=== PATIENT | female | born 1945 | race Caucasian/White ===

== ENCOUNTER → 2016-06-29 | Outpatient (CLI) | payer OTHER ==
--- NOTE | ~2016-06-29 | US77 ---
[facility] A Service of [facility] & [facility] / [facility] RADIOLOGY TEXT RESULTS PATIENT: STAYC MARSH LOCATION: [facility] : 45 UNIT #: [id number] AGE: [address]: Carol Sylvester MD SEX: F ORDER DR: [id number] [facility] [address] [place], [place] [address] [id number] O MR#: [id number] Acc #: [id number] NAME: STACY MARSH : 1945 SEX: F STUDY DATE/TIME: 06/29/2016 13:28 UNIT: [facility] ROOM: STUDY DESCRIPTION: US Kidney Bilateral Complete Attending Physician: Carol Sylvester M.D. Referring Physician: Carol Sylvester M.D. Ordering Physician: Carol Sylvester M.D. Primary Care Physician: Carol Sylvester M.D. MEDICAL IMAGING REPORT This report is preliminary unless electronic signature is present EXAM Renal ultrasound 06/29/2016 INDICATIONS Renal insufficiency. BUN 21, creatinine 1.5, GFR 34. PROCEDURE Erazo-scale and Doppler imaging kidneys and bladder. COMPARISON STUDIES None FINDINGS Right kidney measures 9.4 cm. No hydronephrosis. Unremarkable bladder. Left kidney measures 11.5 cm. No hydronephrosis. The cortical thickness of both kidneys within normal limits. IMPRESSION No hydronephrosis. Cortical thickness of both kidneys within normal limits. Dictated by... Ga Tovar M.D. THIS IS AN ELECTRONICALLY VERIFIED REPORT Ga Tovar M.D. at 06/30/2016 7:18 AM Ambrocio TD: 06/29/2016 16:57 JOB #: [id number] MEDICAL IMAGING REPORT COPY
== END | disposition home or self-care (01) ==
LOC: CGUS 13:02
DX: N18.9 Chronic kidney disease, unspecified (principal); R79.9 Abnormal finding of blood chemistry, unspecified
CPT/HCPCS: 76770

== ENCOUNTER → 2016-11-05 | Outpatient (CLI) | payer OTHER ==
--- NOTE | ~2016-11-05 | MY29 ---
[facility] A Service of [facility] & [facility] RADIOLOGY TEXT RESULTS PATIENT: STACY MARSH LOCATION: [facility] : 45 UNIT #: [id number] AGE: [address]: Jd Ruiz MD SEX: F ORDER DR: [id number] [facility] [address] [place], [place] [address] [id number] O MR#: [id number] Acc #: [id number] NAME: STACY MARSH : 1945 SEX: F STUDY DATE/TIME: 11/05/2016 12:03 UNIT: [facility] ROOM: STUDY DESCRIPTION: MY MAGNOLIA SCREENING W/ CAD BILAT Attending Physician: Jd Ruiz Jr., M.D. Referring Physician: Jd Ruiz Jr., M.D. Ordering Physician: Jd Ruiz Jr., M.D. Primary Care Physician: Carol Sylvester M.D. MEDICAL IMAGING REPORT This report is preliminary unless electronic signature is present EXAM Digital screening mammogram, 11/05/2016. [facility]. HISTORY 71-year-old woman status post left lumpectomy, age 49, with adjuvant radiation therapy. Bilateral reduction mammoplasties 2004. Annual screen. COMPARISON Mammograms date to 11/13/2005 with most recent 10/02/2014. FINDINGS Digital imaging of each breast was completed utilizing screening protocol. Review includes FDA-approved CAD device. Breast size asymmetry is again noted with smaller left breast stable. A number of dystrophic calcifications appear essentially unchanged in the left breast. Post lumpectomy distortion is unchanged on the left side. Minimal residual postradiation skin thickening present as well. Fibroglandular dominance, upper outer quadrant right breast unchanged. I see no interval occurring breast mass and no suspicious microcalcifications. No interval occurring architectural distortion. IMPRESSION Benign mammogram with stable post lumpectomy findings left breast. Annual screening recommended. Patients over the age of 40 are entered into a reminder system with target due date for the next mammogram. A result letter will also be sent to the patient. BIRADS: 2 Benign finding. Dictated by... Rolando Tsang M.D. [facility] A Service of [facility] & [facility] RADIOLOGY TEXT RESULTS PATIENT: STAC[facility] MARSH [id number] 45 UNIT #: [id number] AGE: [address]: Jd Ruiz MD SEX: F ORDER DR: THIS IS AN ELECTRONICALLY VERIFIED REPORT Rolando Tsang M.D. at 11/05/2016 2:40 PM DEMIAN/bell TD: 11/05/2016 13:22 JOB #: [id number] MEDICAL IMAGING REPORT Page 1 of 1 COPY
== END | disposition home or self-care (01) ==
LOC: CWCC 11:13
DX: Z12.31 Encounter for screening mammogram for malignant neoplasm of breast (principal); Z98.890 Other specified postprocedural states
CPT/HCPCS: G0202

== ENCOUNTER → 2016-12-10 | Outpatient (CLI) | payer OTHER | END | disposition home or self-care (01) | LOC: CECH 13:05 | DX: R42 Dizziness and giddiness (principal); I51.7 Cardiomegaly; I35.1 Nonrheumatic aortic (valve) insufficiency; I34.0 Nonrheumatic mitral (valve) insufficiency; I36.1 Nonrheumatic tricuspid (valve) insufficiency; I37.1 Nonrheumatic pulmonary valve insufficiency | CPT/HCPCS: 93306 ==